=== PATIENT | male | born 1935 | race Caucasian/White ===

== ENCOUNTER 2021-05-10 13:35 | Inpatient (IN) | payer BC, OTHER ==
[~2021-05-10] VITALS: Ht 165.1 cm; Wt 67.1 kg
--- NOTE | 2021-05-10 14:32 | NUR ---
DR ZUNIGA AT BEDSIDE
--- NOTE | 2021-05-10 14:38 | NUR ---
GEETA ZAMBRANO AT BEDSIDE FOR EKG
--- NOTE | 2021-05-10 14:50 | NUR ---
NEW GRAD RN AT BEDSIDE
[2021-05-10] MEDS ORDERED: IV NS 0.9% 1,000 ML BAG IV ONE ×2 (15:00→16:00)
[2021-05-10] MEDS ORDERED: PIPERACILLIN /TAZOBACTAM 3.375 G in IV D5W 50 ML IV ONE (15:00)
--- NOTE | 2021-05-10 15:07 | NUR ---
COVID 19 ANTIGEN SWAB DONE AND SENT TO LAB
--- NOTE | 2021-05-10 15:07 | NUR ---
RAPID INFLUENZA SWAB DONE AND SENT TO LAB
--- NOTE | 2021-05-10 15:10 | NUR ---
URINE SAMPLE COLLECTED AND SENT TO LAB
--- NOTE | 2021-05-10 15:18 | NUR ---
INFLUENZA, COVID ANTIGEN AND PCR SWABS DONE AND SENT TO THE LAB
[2021-05-10] MEDS ORDERED: PIPERACILLIN /TAZOBACTAM 3.375 G VIAL IV ONE (15:20)
--- NOTE | 2021-05-10 15:32 | NUR ---
COVID PCR SWAB DONE AND SENT TO LAB
[2021-05-10 15:44] LABS: BASOPHILS % (AUTO) 0.1 % (0.0-2.0); EOSINOPHILS % (AUTO) 1.2 % (0.0-6.0); HEMATOCRIT 35 % (39-51); HEMOGLOBIN 11.8 g/dL (13.5-17.5); LYMPHOCYTES # (AUTO) 0.5 K/uL (0.8-4.8); LYMPHOCYTES % (AUTO) 3.1 % (20.0-44.0); MEAN CORPUSCULAR HGB CONC 34 g/dl (31.0-36.0); MEAN CORPUSCULAR VOLUME 102 fL (80-96); MONOCYTES # (AUTO) 0.9 K/uL (0.1-1.30); MONOCYTES % (AUTO) 5.4 % (2.0-12.0); NEUTROPHILS # (AUTO) 14.4 K/uL (1.8-8.9); NEUTROPHILS % (AUTO) 90.2 % (43.0-81.0); PLATELET COUNT (AUTO) 125 K/uL (150-450); RED BLOOD CELL COUNT(AUTO) 3.43 MIL/uL (4.5-6.0)
[2021-05-10 16:15] LABS: ABG PCO2 34.7 mmHg (35.0-45.0); ABG PH 7.479 (7.350-7.450); ABG PO2 65.1 mmHg (75.0-100.0); COHb 0.3 % (0.5-1.5); MetHb 0.4 % (0.0-1.5); O2Hb 91.5 % (94.0-97.0); SITE, ABG Right Radial; VENT MODE, BG 4L NC
[2021-05-10 16:16] LABS: ALANINE AMINOTRANSFERASE 79 U/L (12-78); ALBUMIN 1.6 g/dL (3.4-5.0); ALKALINE PHOSPHATASE 200 U/L (46-116); ASPARTATE AMINOTRANSFERASE 103 U/L (15-37); BILIRUBIN,DIRECT 1.6 mg/dL (0.0-0.2); BILIRUBIN,TOTAL 4.8 mg/dL (0.2-1.0); CALCIUM, SERUM 7.6 mg/dL (8.5-10.1); CARBON DIOXIDE 31 mmol/L (21-32); CHLORIDE 103 mmol/L (98-107); CREATININE 2.2 mg/dL (0.6-1.3); GLUCOSE 123 mg/dL (74-106); SODIUM SERUM 144 mmol/L (136-145)
[2021-05-10 16:17] LABS: BILIRUBIN,URINE MODERATE (NEGATIVE); COLOR,URINE AMBER (YELLOW); LEUKOCYTE ESTERASE ,URINE MODERATE (NEGATIVE); NITRITE, URINE POSITIVE (NEGATIVE); PROTEIN,URINE 30 mg/dl (NEGATIVE); UGLUCOSE NEGATIVE (NEGATIVE)
[2021-05-10 16:20] LABS: UREA NITROGEN, BLOOD 94 mg/dL (7-18)
[2021-05-10 16:40] LABS: BACTERIA,URINE 3+ /HPF (None Seen); COARSE GRANULAR CASTS,URINE Few /LPF (None Seen); RBC,URINE 51-80 /HPF (0-2); SQUAMOUS EPITHELIAL CELL,UR Few /HPF (None Seen); WBC,URINE 51-80 /HPF (0-3)
--- NOTE | 2021-05-10 16:58 | NUR ---
GAVE REPORT TO SAROJ (HISTOLOGIC TECHNICIAN OF [facility]). CALL BACK #: [phone]
[2021-05-10] MEDS ORDERED: Z GUARD REMEDY 4 OZ OINT TP PRN (18:00)
[2021-05-10] MEDS ORDERED: ONDANSETRON HCL/PF 4 MG/2 ML VIAL IVP PRN (18:00)
[2021-05-10] MEDS ORDERED: TEMAZEPAM 15 MG CAPSULE PO PRN (18:00)
[2021-05-10] MEDS ORDERED: MORPHINE SULFATE INJ 2 MG/ML DISP.SYRIN IV PRN (18:00)
--- NOTE | 2021-05-10 18:24 | NUR ---
PATIENT GIVEN AUTHORIZATION BY [facility] TO STAY HERE
[2021-05-10] MEDS ORDERED: VANCOMYCIN 1 GM in IV D5W 250ml IV ONE (20:00)
--- NOTE | 2021-05-10 20:55 | NUR ---
REPOPRT GIVEN TO WILLEM TREADWELL
[2021-05-10] MEDS ORDERED: PIPERACILLIN /TAZOBACTAM 2.25 G in IV D5W 50 ML IV SCH (21:00)
[2021-05-10 21:23] VITALS: BP 102/51
--- NOTE | 2021-05-10 21:23 | NUR ---
PATIENT TRANSFERRED, NO ACUTE DISTRESS NOTED.
--- NOTE | 2021-05-10 21:24 | NUR ---
RN ADMITTING NOTE PATIENT ADMITTED FROM ER, CAME FROM [facility]. PATIENT IS HERE FOR SEPSIS UNDER MED SURG. PATIENT BROUGHT WITH 5LPM, SATTING 93%. PATIENT HAS MILD SOB. PATIENT IS A/O X 1-2 AT THIS TIME, HX OF DEMENTIA. PATIENT HAS A MOTLEY CATH IN PLACE DOMENICO/TEA COLORED URINE. PATIENT'S SKIN ISSUES IDENTIFIED AND DOCUMENTED. PATIENT HAS A RAC 18 G PATENT AND INTACT, PATIENT CAME WITH LAC INFILTRATED WILL TAKE IT OUT. PATIENT DOESN'T REMEMBER HIS IMMUNIZATION RECORDS, WILL FOLLOW UP WITH MIRTA CRISOSTOMO [phone]. PATIENT TO BE PUT ON SPINAL PRECAUTIONS PER ER DT IMAGING SHOWING FX ON T7, NOT CONFIRMED IF OLD OR NEW. PATIENT DOES NOT HAVE ANY BELONGINGS WITH HIM. ORIENTED PATIENT TO THE ROOM, RNSARAH. SAFETY MEASURES IN PLACE: BED LOCKED AND IN LOWEST POSITION, CALL LIGHT WITHIN REACH, SIDE RAILS UP. WILL MONITOR PATIENT CLOSELY. Addendum: 05/11/21 at 0717 by ERIC MAHONEY RN PATIENT HAS A PREVIOUS DNR/DNI ORDER FROM [facility], PATIENT TO BE FC AT THIS TIME UNTIL ORDER /POLST IS RECEIVED.
[2021-05-10] MEDS ORDERED: VANCOMYCIN 1 GM VIAL ONE (22:34)
[2021-05-10] MEDS: HEPARIN SODIUM, PORCINE 5000 UNITS/1 ML VIAL SQ SCH (23:01)
[2021-05-10] MEDS: IV NS 0.9% 1,000 ML IV PRN (23:07)
--- NOTE | 2021-05-10 23:30 | NUR ---
MIRTA TALAVERA CALLED BUT NO ANSWER. LEFT A VOICEMAIL TO HAVE HER CALL THE UNIT REGARDING THE PATIENT TO DISCUSS POLST AND OTHER INFORMATION.
[2021-05-10] MEDS ORDERED: CEFEPIME 1 GM VIAL ONE (23:40)
[2021-05-11] MEDS: CEFEPIME 2 GM in IV D5W 100 ML IV SCH ×2 (00:29→21:25)
--- NOTE | 2021-05-11 01:06 | NUR ---
RN NOTE DROPPED METOPROLOL TABLET ON THE FLOOR, PULLED ANOTHER TABLET FROM [employer].
[2021-05-11 04:00] VITALS: BP 123/44
--- NOTE | 2021-05-11 07:12 | NUR ---
RN CLOSING NOTE PATIENT HAS EYES CLOSED, EASILY AWAKENED. PATIENT IS A/O X 1-2 AT THIS TIME. PATIENT ON 5LPM NASAL CANULA 93-94% SATURATION. PATIENT HAS MOTLEY IN PLACE, DRAINING VIA GRAVITY. PATIENT HAS A RAC 18G WITH NS@75 ML/HR, INFUSING WELL. NOT IN ANY APPARENT DISTRESS AT THIS TIME, MILD SOB AND COUGH PRESENT. SAFETY MEASURES IN PLACE: BED LOCKED AND IN LOWEST POSITION, CALL LIGHT WITHIN REACH, SIDE RAILS UP. WILL ENDORSE TO DAY SHIFT NURSE FOR HU.
--- NOTE | 2021-05-11 07:45 | NUR ---
RN OPENING NOTE RECEIVED PATIENT SLEEPING IN BED. BREATHING EVEN AND UNLABORED. NO SOB OR ANY ACUTE DISTRESS NOTED. ON O2 5LPM VIA NC, TOLERATING WELL. IV ACCESS ON RIGHT AC #18 INTACT, PATENT AND INFUSING NS @ 75ML/HR, TOLERATING WELL. ALL APPLICABLE ISOLATION PRECAUTIONS IN PLACED. ALL SAFETY MEASURES IN PLACE: BED LOCKED AND AT LOWEST POSITION, RAILS UP X2, CALL TORIBIO WITHIN REACH. WILL CONTINUE TO MONITOR PATIENT ACCORDINGLY.
[2021-05-11 08:01] LABS: BASOPHILS # (AUTO) 0.1 K/uL (0.0-0.2); BASOPHILS % (AUTO) 0.5 % (0.0-2.0); EOSINOPHILS % (AUTO) 0.8 % (0.0-6.0); HEMATOCRIT 36 % (39-51); HEMOGLOBIN 12.2 g/dL (13.5-17.5); LYMPHOCYTES # (AUTO) 0.6 K/uL (0.8-4.8); LYMPHOCYTES % (AUTO) 3.4 % (20.0-44.0); MEAN CORPUSCULAR HGB CONC 34 g/dl (31.0-36.0); MEAN CORPUSCULAR VOLUME 101 fL (80-96); MONOCYTES # (AUTO) 1.1 K/uL (0.1-1.30); MONOCYTES % (AUTO) 6.6 % (2.0-12.0); NEUTROPHILS # (AUTO) 14.7 K/uL (1.8-8.9); NEUTROPHILS % (AUTO) 88.7 % (43.0-81.0); PLATELET COUNT (AUTO) 116 K/uL (150-450); RED BLOOD CELL COUNT(AUTO) 3.55 MIL/uL (4.5-6.0); WHITE BLOOD COUNT (AUTO) 16.6 K/uL (4.3-11.0)
[2021-05-11] MEDS: LACTULOSE 10 G/15 ML UDC (PYXIS) PO SCH ×2 (08:20→16:31)
[2021-05-11] MEDS: PANTOPRAZOLE 40 MG TABLET.DR PO SCH (08:20)
[2021-05-11] MEDS: HEPARIN SODIUM, PORCINE 5000 UNITS/1 ML VIAL SQ SCH ×2 (08:22→21:33)
[2021-05-11] MEDS ORDERED: METO25TA4 PO (09:20)
[2021-05-11] MEDS ORDERED: NYST15PO4 TP (09:20)
[2021-05-11] MEDS ORDERED: THIA100T88 PO (09:20)
[2021-05-11] MEDS ORDERED: NA P133E RC (09:20)
[2021-05-11] MEDS ORDERED: LISI40TA13 PO (09:20)
[2021-05-11] MEDS ORDERED: ACET-868 PO ×2 (09:20)
[2021-05-11] MEDS ORDERED: ASCO-352 PO (09:20)
[2021-05-11] MEDS ORDERED: SENN-261 PO (09:20)
[2021-05-11] MEDS ORDERED: ZINC56.713 TP (09:20)
[2021-05-11] MEDS ORDERED: FURO-145 PO (09:20)
[2021-05-11] MEDS ORDERED: MAGN400O6 PO (09:20)
[2021-05-11] MEDS ORDERED: DONE10TA11 PO (09:20)
[2021-05-11] MEDS ORDERED: SPIR50TA5 PO (09:20)
[2021-05-11] MEDS ORDERED: TERA5CAP4 PO (09:20)
[2021-05-11] MEDS ORDERED: POLY17PO4 PO (09:20)
[2021-05-11] MEDS ORDERED: ZINC1CAP3 PO (09:20)
[2021-05-11] MEDS ORDERED: BISA10SU11 RC (09:20)
[2021-05-11] MEDS ORDERED: MULT-447 PO (09:20)
[2021-05-11] MEDS ORDERED: HYDR-4076 PO (09:20)
[2021-05-11] MEDS ORDERED: HYDR12.55 PO (09:20)
[2021-05-11] MEDS ORDERED: GUAI5SYR PO (09:20)
[2021-05-11] MEDS ORDERED: NEOM1OIN15 TP (09:20)
[2021-05-11 11:49] LABS: CALCIUM, SERUM 7.2 mg/dL (8.5-10.1); CARBON DIOXIDE 27 mmol/L (21-32); CHLORIDE 108 mmol/L (98-107); CREATININE 2.2 mg/dL (0.6-1.3); GLUCOSE 97 mg/dL (74-106); MAGNESIUM 2.8 mg/dL (1.8-2.4); PHOSPHORUS 4.7 mg/dL (2.5-4.9); POTASSIUM 4.7 mmol/L (3.5-5.1); SODIUM SERUM 144 mmol/L (136-145)
[2021-05-11 11:50] LABS: UREA NITROGEN, BLOOD 85 mg/dL (7-18)
[2021-05-11] MEDS: IV NS 0.9% 1,000 ML IV PRN (18:09)
--- NOTE | 2021-05-11 19:20 | NUR ---
RN OPENING NOTES RECEIVED PATIENT IN BED, AWAKE, ALERT AND VERBALLY RESPONSIVE, NO SOB NOTED NOT IN DISTRESS, A/O X 1-2 PT ON NASAL CANULA @ 5LPM . PATIENT NOTED WITH JOSIAH MID LINE, PATENT INTACT AND FLUSHED WITH NORMAL SALINE. ALL SAFETY PRECAUTION IMPLEMENTED. BED IS AT LOWEST POSITION AND LOCKED. BED ALARM ARMED. CALL LIGHT IS WITHIN REACH. WILL CONTINUE TO MONITOR
--- NOTE | 2021-05-11 19:25 | NUR ---
RN CLOSING NOTES PATIENT REMAINS AT STABLE CONDITION THROUGHOUT SHIFT. ON O2 5LPM VIA NC, TOLERATING WELL. BREATHING EVEN AND UNLABORED. NO SOB OR ANY ACUTE DISTRESS NOTED. IV ACCESS ON JOSIAH MIDLINE PATENT AND INTACT INFUSING NS AT 75 ML/HR, TOLERATING WELL. ALL DUE MEDS GIVEN ORDERED. ALL NEEDS ATTENDED. KEPT PATIENT CLEAN, DRY AND COMFORTABLE. ALL APPLICABLE ISOLATION PRECAUTIONS MAINTAINED. ALL SAFETY MEASURES MAINTAINED. HOB ELEVATED BED LOCKED AND IN LOWEST POSITION WITH SIDERAILS UP CALL LIGHT WITHIN REACH. WILL ENDORSE TO ONCOMING NURSE FOR HU.
[2021-05-11 20:00] VITALS: BP 105/45
[2021-05-11] MEDS: VANCOMYCIN 0.75 GM in IV D5W 250 ML IV SCH (23:28)
[2021-05-12 04:00] VITALS: BP 122/45
--- NOTE | 2021-05-12 08:24 | NUR ---
RN CLOSING NOTES PATIENT REMAIN STABLE THROUGH OUT THE SHIFT, NO SOB NOTED NOT IN DISTRESS, A/O X 1-2 PT ON NASAL CANULA @ 5LPM . PATIENT NOTED WITH JOSIAH MID LINE, PATENT INTACT AND FLUSHED WITH NORMAL SALINE. ALL DUE MEDS GIVEN ORDERED. ALL SAFETY PRECAUTION IMPLEMENTED. BED IS AT LOWEST POSITION AND LOCKED. BED ALARM ARMED. CALL LIGHT IS WITHIN REACH. WILL CONTINUE TO MONITOR
[2021-05-12] MEDS: FOLIC ACID 1 MG TABLET PO SCH (08:31)
[2021-05-12] MEDS: LACTULOSE 10 G/15 ML UDC (PYXIS) PO SCH ×2 (08:31→17:05)
[2021-05-12] MEDS: PANTOPRAZOLE 40 MG TABLET.DR PO SCH (08:31)
[2021-05-12] MEDS: HEPARIN SODIUM, PORCINE 5000 UNITS/1 ML VIAL SQ SCH ×2 (08:33→21:09)
[2021-05-12 09:23] LABS: CARBON DIOXIDE 27 mmol/L (21-32); CHLORIDE 108 mmol/L (98-107); CREATININE 2.6 mg/dL (0.6-1.3); GLUCOSE 84 mg/dL (74-106); POTASSIUM 4.6 mmol/L (3.5-5.1); SODIUM SERUM 145 mmol/L (136-145)
[2021-05-12 09:35] LABS: UREA NITROGEN, BLOOD 91 mg/dL (7-18)
[2021-05-12 09:53] LABS: FERRITIN 738 ng/mL (8-388); THYROID STIMULATING HORMONE 1.725 uIU/mL (0.358-3.74)
[2021-05-12 11:34] LABS: PROSTATE SPECIFIC ANTIGEN SCR 11.49 ng/mL (0.00-4.00)
[2021-05-12 11:49] LABS: IRON, SERUM 53 ug/dl (50-175); TOTAL IRON BINDING CAPACITY 71 ug/dl (250-450)
[2021-05-12 12:00] VITALS: BP 92/39
--- NOTE | 2021-05-12 14:00 | NUR ---
RECEIVED PATIENT RESTING IN BED , SOB NOTED BUT NOT IN DISTRESS - REPOSITIONED FOR COMFORT AND TO HELP WITH BREATHING TO HIGH FOWLERS POSITION - EFFECTIVE , A/O X 1 PT ON NASAL CANNULA @ 5LPM . OXYGEN MAINTAINED AT 93%, JOSIAH MID LINE INTACT , NO S/S OF ANY IRRITATION NOR INFECTION NOTED, PATENT AND FLUSHED WITH NORMAL SALINE. ALL DUE MEDS GIVEN ORDEREDM PO WITH WATER NO ASPIRATION NOTED. ALL SAFETY PRECAUTION IMPLEMENTED. BED IS AT LOWEST POSITION AND WHEELS LOCKED. BED ALARM ARMED AND ACTIVE, CALL LIGHT WITHIN REACH. WILL CONTINUE TO MONITOR, MD PLACED NEW ORDERS FOR COMFORT MEASURES PT IS A DNR DNI AT THIS TIME.
[2021-05-12] MEDS ORDERED: MAGNESIUM HYDROXIDE 30 ML UDC PO PRN (16:30)
[2021-05-12] MEDS ORDERED: BISACODYL SUPP (10 MG) 10 MG/SUPP.RECT SUPP.RECT RC PRN (16:30)
[2021-05-12] MEDS: MULTIVITAMIN LIQ 5 ML UDC PO SCH (16:30)
[2021-05-12] MEDS ORDERED: hydrALAZINE HCL 25 MG TABLET PO PRN (16:30)
[2021-05-12] MEDS ORDERED: GUAIFENESIN/D-METHORPHAN HB 5 ML UDC PO PRN (16:30)
[2021-05-12] MEDS ORDERED: NA PHOS,M-B/NA PHOS,DI-BA 1 EA ENEMA RC PRN (16:30)
[2021-05-12] MEDS: ASCORBIC ACID 500 MG TABLET PO SCH (17:05)
[2021-05-12] MEDS: THIAMINE HCL 100 MG TABLET PO SCH ×2 (17:06→17:07)
[2021-05-12] MEDS: FUROSEMIDE 20 MG TABLET PO SCH (17:06)
--- NOTE | 2021-05-12 17:40 | NUR ---
PHARMACY NOTIFIED MULTI VITAMIN LIQUID IS NOT AVAILABLE AT THIS TIME, THIS MEDICATION IS NOT PROVIDED HERE, TO NOTIFY FAMILY TO BRING IN A FORM OF LIQUID VITAMIN AT THIS TIME. PT ASLEEP EASY TO AROUSE, TOOK ALL OTHER PO MEDS WELL NO ASPIRATION NOTED WITH THICKENED WATER FOR SAFETY, BED LOW TO FLOOR, WHEELS LOCKED CALL LIGHT IN REACH, IV SITE IS FLUSHING WELL PATENT , INTACT, BED BATH PROVIDED, REPOSITIONED, ORAL CARE GIVEN, F/C CARE GIVEN INTACT, HOB ELEVATED TO HELP WITH BREATHING NO SOB NOTED AT THIS TIME AND NO LABORED BREATHING MAINTAINING A 93% OXYGEN VIA NC , CALL LIGHT IN REACH MONITORING CLOSELY FOR ANY SIGNIFICANT CHANGES.
--- NOTE | 2021-05-12 19:40 | NUR ---
RN OPENING NOTES PATIENT RECEIVED IN BED ALERT, ORIENTED X1, RESPONSIVE TO PAINFUL STIMULI. ON O2 5LPM VIA NC AND TOLERATING WELL. BREATHING EVEN AND UNLABORED. NO SOB NOTED. IV ACCESS ON JOSIAH MIDLINE PATENT AND INTACT. NO S/S OF INFILTRATIONS. NO FACIAL GRIMACING NOTED. NO ACUTE DISTRESS. ALL SAFETY MEASURES IN PLACE. BED IN LOWEST POSITION. SIDERAILS UP X3, PLACE CALL LIGHT WITHIN REACH. WILL CONTINUE TO MONITOR
[2021-05-12 20:00] VITALS: BP 122/43
[2021-05-12] MEDS: CEFEPIME 2 GM in IV D5W 100 ML IV SCH (20:47)
[2021-05-12] MEDS: DONEPEZIL 5 MG TABLET PO SCH (21:58)
[2021-05-12] MEDS: TERAZOSIN HCL 5 MG CAPSULE PO SCH (22:09)
[2021-05-13] MEDS: VANCOMYCIN 0.75 GM in IV D5W 250 ML IV SCH (01:05)
[2021-05-13 04:00] VITALS: BP 100/36
--- NOTE | 2021-05-13 06:40 | NUR ---
RN CLOSING NOTES PATIENT RESTING IN BED ALERT, ORIENTED X1, RESPONSIVE TO PAINFUL STIMULI. ON O2 5LPM VIA NC, O2 SAT 94% AND TOLERATING WELL. BREATHING EVEN AND UNLABORED. NO SOB NOTED. IV ACCESS ON JOSIAH MIDLINE PATENT AND INTACT WITH RUNNING NS AT 125ML/HR . NO S/S OF INFILTRATIONS. NO FACIAL GRIMACING NOTED. NO ACUTE DISTRESS. MOTLEY CATHETER INTACT AND PATENT. ALL DUE MEDS GIVEN ORDERED. ALL SAFETY MEASURES IN PLACE. BED IN LOWEST POSITION. SIDERAILS UP X3, PLACE CALL LIGHT WITHIN REACH. WILL ENDORSE TO MORNING SHIFT NURSE.
[2021-05-13] MEDS: IV NS 0.9% 1,000 ML IV PRN ×2 (07:42→17:13)
[2021-05-13] MEDS: LISINOPRIL (20MG) 20 MG TABLET PO SCH (09:00)
[2021-05-13] MEDS: FUROSEMIDE 20 MG TABLET PO SCH ×2 (09:00→17:00)
[2021-05-13] MEDS: METOPROLOL SUCCINATE 25 MG TAB.SR.24H PO SCH (09:00)
[2021-05-13 09:05] LABS: CALCIUM, SERUM 6.6 mg/dL (8.5-10.1); CARBON DIOXIDE 25 mmol/L (21-32); CHLORIDE 110 mmol/L (98-107); GLUCOSE 114 mg/dL (74-106); POTASSIUM 4.3 mmol/L (3.5-5.1); SODIUM SERUM 144 mmol/L (136-145)
[2021-05-13] MEDS: ZINC OXIDE 56.7 GM TUBE TP SCH (10:23)
[2021-05-13] MEDS: NYSTATIN TOP POWDER 15 GM BOTTLE TP SCH (10:23)
[2021-05-13] MEDS: BACI/NEOM/POLY B OINT PKT 1 UDPKT PACKET TP SCH (10:23)
[2021-05-13] MEDS: HEPARIN SODIUM, PORCINE 5000 UNITS/1 ML VIAL SQ SCH ×2 (10:24→21:00)
[2021-05-13] MEDS: LACTULOSE 10 G/15 ML UDC (PYXIS) PO SCH ×2 (10:25→17:11)
[2021-05-13] MEDS: SENNOSIDES 8.6 MG TABLET PO SCH (10:25)
[2021-05-13] MEDS: FOLIC ACID 1 MG TABLET PO SCH (10:25)
[2021-05-13] MEDS: ASCORBIC ACID 500 MG TABLET PO SCH (10:25)
[2021-05-13] MEDS: SPIRONOLACTONE 25 MG TABLET PO SCH (10:25)
[2021-05-13 10:35] LABS: UREA NITROGEN, BLOOD 95 mg/dL (7-18)
[2021-05-13] MEDS: MULTIVITAMIN LIQ 5 ML UDC PO SCH (11:07)
[2021-05-13 12:00] VITALS: BP 75/31
[2021-05-13 15:51] LABS: BASOPHILS # (AUTO) 0.1 K/uL (0.0-0.2); BASOPHILS % (AUTO) 0.8 % (0.0-2.0); EOSINOPHILS % (AUTO) 1.1 % (0.0-6.0); HEMATOCRIT 31 % (39-51); HEMOGLOBIN 10.4 g/dL (13.5-17.5); LYMPHOCYTES # (AUTO) 0.5 K/uL (0.8-4.8); LYMPHOCYTES % (AUTO) 4.6 % (20.0-44.0); MEAN CORPUSCULAR HGB CONC 34 g/dl (31.0-36.0); MEAN CORPUSCULAR VOLUME 102 fL (80-96); MONOCYTES # (AUTO) 0.6 K/uL (0.1-1.30); MONOCYTES % (AUTO) 5.5 % (2.0-12.0); NEUTROPHILS # (AUTO) 9.2 K/uL (1.8-8.9); PLATELET COUNT (AUTO) 65 K/uL (150-450); RED BLOOD CELL COUNT(AUTO) 3.03 MIL/uL (4.5-6.0); WHITE BLOOD COUNT (AUTO) 10.4 K/uL (4.3-11.0)
[2021-05-13 16:21] LABS: D-DIMER 4.59 mg/L(FEU (0.17-0.50)
--- NOTE | 2021-05-13 19:30 | NUR ---
RN CLOSING NOTES PATIENT RESTING IN BED ALERT, ORIENTED X1, RESPONSIVE TO PAINFUL STIMULI. ON O2 5LPM VIA NC, O2 SAT 94% AND TOLERATING WELL. BREATHING EVEN AND UNLABORED. NO SOB NOTED. IV ACCESS ON JOSIAH MIDLINE PATENT AND INTACT WITH RUNNING NS AT 125ML/HR . NO S/S OF INFILTRATIONS. NO FACIAL GRIMACING NOTED. NO ACUTE DISTRESS. MOTLEY CATHETER INTACT AND PATENT. ALL DUE MEDS GIVEN ORDERED. ALL SAFETY MEASURES IN PLACE. BED IN LOWEST POSITION. SIDERAILS UP X3, PLACE CALL LIGHT WITHIN REACH. WILL ENDORSE TO DIRECTOR FOOD AND BEVERAGE NURSE.
--- NOTE | 2021-05-13 19:30 | NUR ---
MS RN OPENING NOTE RECEIVED PATIENT IN BED, ISOLATION IN PLACE. A/OX2. NO S/S OF APPARENT DISTRESS ON 5LPM OF O2 VIA NC. PATIENT DENIES PAIN AT THIS TIME. IV NS RUNNING AT 125 THIS TIME -- (CHANGED TO 75 ORDER CHANGED). MOTLEY CATHETER DRAINING TEA COLOR URINE. PATIENT NOTED TO HAVE BIG BRUISES ON BILATERAL ARMS. SAFETY IN PLACE. HOB ELEVATED TO 45 DEGREES. WILL CONTINUE WITH PLAN OF CARE FOR PATIENT.
[2021-05-13 20:00] VITALS: BP 93/35
--- NOTE | 2021-05-13 20:00 | NUR ---
MS RN NOTE HELD SCHEDULED 0 HYTRIN. BP WAS INITIALLY 83/35 WHEN CHECKED BY DOPE DRY HOUSE OPERATOR. RECHECKED MYSELF, BP WAS 93/39. WILL CONTINUE TO MONITOR PATIENT.
[2021-05-13] MEDS ORDERED: MEROPENEM 500 MG VIAL IV ONE (21:47)
[2021-05-13] MEDS: TERAZOSIN HCL 5 MG CAPSULE PO SCH (22:00)
[2021-05-13] MEDS: MEROPENEM 500 MG in IV NS 0.9% 50 ML IV SCH (22:19)
[2021-05-13] MEDS: DONEPEZIL 5 MG TABLET PO SCH (22:20)
--- NOTE | 2021-05-13 23:46 | NUR ---
MS RN NOTE HEPARIN HELD PER DOCTOR [facility] ORDER. PLT. OF 66.
[2021-05-14] MEDS: IV NS 0.9% 1,000 ML IV PRN (02:59)
[2021-05-14 04:00] VITALS: BP 89/32
--- NOTE | 2021-05-14 06:29 | NUR ---
MS RN NOTE RECHECKED BP: 88/57. PER ÁNGELA, CHARGE NURSE STILL OKAY WITH MAP OF 74. NO INTERVENTION NEEDED.
--- NOTE | 2021-05-14 06:40 | NUR ---
MS RN CLOSING NOTE PATIENT IN BED WITH EYES CLOSED. A/OX2. NO S/S OF APPARENT DISTRESS ON 5LPM O2 VIA NC. HOB ELEVATED. DENIES PAIN. NEEDS ATTENDED. MOTLEY DRAINING TEA COLORED URINE WITH UO OF 100ML. IV NS RUNNING AT 75ML/HR. SAFETY IN PLACE. ISOLATION PRECAUTION STRICTLY FOLLOWED. NO SIGNIFICANT CHANGE SINCE LAST ENDORSEMENT. WILL ENDORSE TO MORNING RN FOR CONTINUITY OF CARE.
--- NOTE | 2021-05-14 07:48 | NUR ---
RN OPEN NOTE RECEIVED PATIENT IN BED AWAKE A/OX2. NO S/S OF APPARENT DISTRESS OR SOB NOTED AT THIS TIME, ON 5LPM O2 VIA NC. MOTLEY BELOW THE PT DRAINING TEA COLORED URINE, IV JOSIAH MIDLINE RUNNING NS AT 75ML/HR. SAFETY MEASURES IMPLEMENTED, CALL LIGHT WITHIN REACH BED ALARM ON, BED ALSO LOCKED AND IN LOWEST POSITION, ISOLATION PRECAUTION STRICTLY FOLLOWED. WILL CONTINUE TO MONITOR
[2021-05-14 07:57] LABS: BASOPHILS % (AUTO) 0.2 % (0.0-2.0); EOSINOPHILS % (AUTO) 1.1 % (0.0-6.0); HEMATOCRIT 32 % (39-51); HEMOGLOBIN 10.9 g/dL (13.5-17.5); LYMPHOCYTES # (AUTO) 0.3 K/uL (0.8-4.8); LYMPHOCYTES % (AUTO) 2.7 % (20.0-44.0); MEAN CORPUSCULAR HGB CONC 34 g/dl (31.0-36.0); MEAN CORPUSCULAR VOLUME 103 fL (80-96); MONOCYTES # (AUTO) 0.7 K/uL (0.1-1.30); MONOCYTES % (AUTO) 6.2 % (2.0-12.0); NEUTROPHILS # (AUTO) 10.8 K/uL (1.8-8.9); NEUTROPHILS % (AUTO) 89.8 % (43.0-81.0); PLATELET COUNT (AUTO) 74 K/uL (150-450); RED BLOOD CELL COUNT(AUTO) 3.13 MIL/uL (4.5-6.0)
[2021-05-14 08:00] VITALS: BP 90/35
[2021-05-14 08:11] LABS: CARBON DIOXIDE 23 mmol/L (21-32); CHLORIDE 113 mmol/L (98-107); CREATININE 3.5 mg/dL (0.6-1.3); GLUCOSE 94 mg/dL (74-106); POTASSIUM 4.1 mmol/L (3.5-5.1); SODIUM SERUM 146 mmol/L (136-145)
[2021-05-14 08:13] LABS: UREA NITROGEN, BLOOD 95 mg/dL (7-18)
[2021-05-14] MEDS: LISINOPRIL (20MG) 20 MG TABLET PO SCH (09:00)
[2021-05-14] MEDS: FUROSEMIDE 20 MG TABLET PO SCH ×2 (09:00→17:08)
[2021-05-14] MEDS: HEPARIN SODIUM, PORCINE 5000 UNITS/1 ML VIAL SQ SCH (09:00)
[2021-05-14] MEDS: METOPROLOL SUCCINATE 25 MG TAB.SR.24H PO SCH (09:00)
[2021-05-14 09:07] LABS: IMMUNOGLOBULIN A, SERUM 421 mg/dL (61-437); IMMUNOGLOBULIN G, SERUM 1254 mg/dL (603-1613); IMMUNOGLOBULIN M, SERUM 367 mg/dL (15-143)
[2021-05-14] MEDS: LACTULOSE 10 G/15 ML UDC (PYXIS) PO SCH ×2 (09:28→17:08)
[2021-05-14] MEDS: SPIRONOLACTONE 25 MG TABLET PO SCH (09:28)
[2021-05-14] MEDS: ASCORBIC ACID 500 MG TABLET PO SCH (09:28)
[2021-05-14] MEDS: SENNOSIDES 8.6 MG TABLET PO SCH (09:28)
[2021-05-14] MEDS: FOLIC ACID 1 MG TABLET PO SCH (09:28)
[2021-05-14] MEDS: THIAMINE HCL 100 MG TABLET PO SCH (09:28)
[2021-05-14] MEDS: MULTIVITAMIN LIQ 5 ML UDC PO SCH (09:30)
[2021-05-14] MEDS: MEROPENEM 500 MG in IV NS 0.9% 50 ML IV SCH ×2 (09:33→22:49)
[2021-05-14] MEDS: BACI/NEOM/POLY B OINT PKT 1 UDPKT PACKET TP SCH (09:33)
[2021-05-14] MEDS: ZINC OXIDE 56.7 GM TUBE TP SCH (09:45)
[2021-05-14] MEDS: NYSTATIN TOP POWDER 15 GM BOTTLE TP SCH (09:45)
--- NOTE | 2021-05-14 09:46 | NUR ---
RN NOTED BLOOD PRESSURE 90/35, LISINOPRIL, FUROSEMIDE AND METOPROLOL HOLD, PLATELET 74 HEPARIN HOLD. DOCTOR NOTIFIED
--- NOTE | 2021-05-14 10:29 | NUR ---
PER [facility] COVID POSITIVE DR. RICH MADE AWARE.
[2021-05-14 11:07] LABS: *SPE A/G RATIO 0.7 (0.7-1.7); *SPE ALPHA-1-GLOBULIN 0.2 g/dL (0.0-0.4); *SPE ALPHA-2-GLOBULIN 0.3 g/dL (0.4-1.0); *SPE BETA GLOBULIN 0.6 g/dL (0.7-1.3); *SPE M-SPIKE Not Observed g/dL (Not Observed)
--- NOTE | 2021-05-14 12:19 | NUR ---
RN NOTE CALLED DR ROBLES HE DID NOT ANSWER , I WILL CALL AGAIN BP 75/35 TEMPERATURE 36.4 CALLED [facility] [employer] WAITING FOR A BEG KYRA WILL CONTINUE TO MONITOR
--- NOTE | 2021-05-14 12:38 | NUR ---
RN NOTED BLOOD PRESSURE 80/40 MANUALLY
[2021-05-14 16:00] VITALS: BP 80/37
[2021-05-14] MEDS ORDERED: IV 1/2NS 1000 ML 1,000 ML IV ONE (16:30)
--- NOTE | 2021-05-14 19:21 | NUR ---
RN CLOSING NOTE PATIENT IN BED A/OX2. NO S/S OF APPARENT DISTRESS ON 5LPM O2 VIA NC. HOB ELEVATED. DENIES PAIN. NEEDS ATTENDED. MOTLEY BELOW THE PT DRAINING TEA COLORED URINE WITH IV 0.45 NS RUNNING AT 50 ML/HR. SAFETY MEASURES IN PLACE. BEG HUGGER IN THE ROOM FOR LOW TEMPERATURE, BP IS BEEN ALSO LOW 80S AND 40S DURING SHIFT, ISOLATION PRECAUTION STRICTLY FOLLOWED. NO SIGNIFICANT CHANGES SINCE LAST ENDORSEMENT. WILL ENDORSE TO UNIT TECHNICIANRESIDENT ATHLETIC TRAINER
--- NOTE | 2021-05-14 19:30 | NUR ---
RN OPENING NOTE RECEIVED PATIENT IN BED AWAKE A/OX2. NO S/S OF APPARENT DISTRESS OR SOB NOTED AT THIS TIME, ON 5LPM O2 VIA NC, O2 SAT 96%. NO SIGNIFICANT FINDINGS UPON INITIAL NURSING ASSESSMENTS. SAFETY MEASURES IMPLEMENTED, CALL LIGHT WITHIN REACH BED ALARM ON, BED ALSO LOCKED AND IN LOWEST POSITION, ISOLATION PRECAUTION STRICTLY FOLLOWED. WILL CONTINUE TO MONITOR
[2021-05-14] MEDS: TERAZOSIN HCL 5 MG CAPSULE PO SCH (22:00)
[2021-05-14] MEDS: DONEPEZIL 5 MG TABLET PO SCH (22:49)
[2021-05-15] VITALS: BP 89/59
[2021-05-15] MEDS ORDERED: IV NS 0.9% 500 ML IV ONE (06:30)
--- NOTE | 2021-05-15 07:08 | NUR ---
RN CLOSING NOTE PATIENT NOTED HYPOTENSIVE AT 0400, TOOK 3 SETS OF VITAL SIGNS 5 MINUTES APART, BP FOLLOWS: 58/32, 65/33, 63/43. DR. THORPE MADE AWARE, ORDERED 500ML NS BOLUS AND IV FLUIDS NS AT 50ML/HR. PATIENT'S BLOOD PRESSURE IS NOW 78/48, PATIENT IN NO DISTRESS. WILL ENDORSE CARE OF PATIENT TO AM NURSE FOR HU.
[2021-05-15] MEDS ORDERED: IV NS 0.9% 1,000 ML IV SCH (07:30)
--- NOTE | 2021-05-15 07:49 | NUR ---
MS RN OPENING NOTE Patient in bed, asleep. A/O x 1-2. On O2 at % LPM via NC, breathing evenly and unlabored. No SOB or s/s of distress noted. IV access on JOSIAH midline infusing NS bolus. Safety precautions in place: bed in low, locked position; siderails up x 2; call light within reach. Will continue to monitor.
[2021-05-15 08:00] VITALS: BP 83/27
[2021-05-15 08:24] LABS: CALCIUM, SERUM 7.7 mg/dL (8.5-10.1); CARBON DIOXIDE 20 mmol/L (21-32); CHLORIDE 113 mmol/L (98-107); CREATININE 4.1 mg/dL (0.6-1.3); GLUCOSE 69 mg/dL (74-106); POTASSIUM 4.6 mmol/L (3.5-5.1); SODIUM SERUM 148 mmol/L (136-145)
[2021-05-15 08:30] LABS: UREA NITROGEN, BLOOD 104 mg/dL (7-18)
--- NOTE | 2021-05-15 08:30 | NUR ---
RN NOTE Critical value received from Gavin, from lab; BUN is 104. MD notified.
[2021-05-15] MEDS ORDERED: MULTIVIT W/MINERALS 1 TAB TABLET PO SCH (09:00)
[2021-05-15] MEDS: ASCORBIC ACID 500 MG TABLET PO SCH (09:00)
[2021-05-15] MEDS: BACI/NEOM/POLY B OINT PKT 1 UDPKT PACKET TP SCH (09:00)
[2021-05-15] MEDS: ZINC OXIDE 56.7 GM TUBE TP SCH (09:00)
[2021-05-15] MEDS: THIAMINE HCL 100 MG TABLET PO SCH (09:00)
[2021-05-15] MEDS: LACTULOSE 10 G/15 ML UDC (PYXIS) PO SCH ×2 (09:00→17:00)
[2021-05-15] MEDS: LISINOPRIL (20MG) 20 MG TABLET PO SCH (09:00)
[2021-05-15] MEDS: METOPROLOL SUCCINATE 25 MG TAB.SR.24H PO SCH (09:00)
[2021-05-15] MEDS: FOLIC ACID 1 MG TABLET PO SCH (09:00)
[2021-05-15] MEDS: NYSTATIN TOP POWDER 15 GM BOTTLE TP SCH (09:00)
[2021-05-15] MEDS: SENNOSIDES 8.6 MG TABLET PO SCH (09:00)
[2021-05-15] MEDS: SPIRONOLACTONE 25 MG TABLET PO SCH (10:18)
[2021-05-15] MEDS: FUROSEMIDE 20 MG TABLET PO SCH ×2 (10:18→17:00)
[2021-05-15] MEDS: MEROPENEM 500 MG in IV NS 0.9% 50 ML IV SCH (10:27)
--- NOTE | 2021-05-15 12:00 | NUR ---
RN NOTE Patient's BP is still low at 81/35, MD aware.
--- NOTE | 2021-05-15 15:00 | NUR ---
RN NOTE Patient's O2 saturation is 87 at 5 LPM, O2 increased to 15 LPM via non-rebreather. SPO2 went up to 92. MD notified.
[2021-05-15 16:00] VITALS: BP 116/26
--- NOTE | 2021-05-15 18:30 | NUR ---
RN NOTE Patient discharged to [facility].
== END 2021-05-15 18:22 | disposition hospice, inpatient (51) | DRG 871 ==
LOC: ER 13:44 → TRANSITION 19:32 → TELE1 20:38 → MEDSG1 21:19
PROVIDERS: ADMIT Nurse Practitioner Acute Care; ATTEND Internal Medicine
PROC: 05H933Z Insertion of Infusion Device into Right Brachial Vein, Percutaneous Approach (ICD-10-PCS; principal; 2021-05-11)
DX: A41.9 Sepsis, unspecified organism (principal); E43 Unspecified severe protein-calorie malnutrition; J96.01 Acute respiratory failure with hypoxia; J15.6 Pneumonia due to other Gram-negative bacteria; J15.9 Unspecified bacterial pneumonia; N17.0 Acute kidney failure with tubular necrosis; U07.1 COVID-19; N39.0 Urinary tract infection, site not specified; M80.08XA Age-related osteoporosis with current pathological fracture, vertebra(e), initial encounter for fracture; I50.32 Chronic diastolic (congestive) heart failure; D68.59 Other primary thrombophilia; R64 Cachexia; N42.9 Disorder of prostate, unspecified; E27.9 Disorder of adrenal gland, unspecified; D69.6 Thrombocytopenia, unspecified; I11.0 Hypertensive heart disease with heart failure; D53.9 Nutritional anemia, unspecified; E11.9 Type 2 diabetes mellitus without complications; E66.01 Morbid (severe) obesity due to excess calories; E86.0 Dehydration; G30.9 Alzheimer's disease, unspecified; F02.80 Dementia in other diseases classified elsewhere, unspecified severity, without behavioral disturbance, psychotic disturbance, mood disturbance, and anxiety; I25.10 Atherosclerotic heart disease of native coronary artery without angina pectoris; I48.91 Unspecified atrial fibrillation; K42.9 Umbilical hernia without obstruction or gangrene; K80.20 Calculus of gallbladder without cholecystitis without obstruction; M89.8X9 Other specified disorders of bone, unspecified site; N40.1 Benign prostatic hyperplasia with lower urinary tract symptoms; Z66 Do not resuscitate; Z91.81 History of falling; Z87.891 Personal history of nicotine dependence; K70.31 Alcoholic cirrhosis of liver with ascites; B96.1 Klebsiella pneumoniae [K. pneumoniae] as the cause of diseases classified elsewhere; R29.6 Repeated falls; C67.9 Malignant neoplasm of bladder, unspecified
CPT/HCPCS: 36415; 36600; 71045-TC; 71250-TC; 76770-TC; 80048-TC; 80076-TC; 80202-TC; 81001; 82140-TC; 82378; 82533; 82728-TC; 82784; 82803-TC; 83540-TC; 83605-TC; 83735-TC; 84100-TC; 84153-TC; 84154-TC; 84155; 84165; 84260; 84443-TC; 84484-TC; 85025-TC; 85385-TC; 85396; 85610-TC; 85730-TC; 86140-TC; 86316; 86334; 86706; 86803; 87040-TC; 87081-TC; 87086-TC; 87186-TC; 87340; 87806; 92526; 92611-TC; 93307-TC; C9803; G0378; J0692; J1644; J2185; J2270; J2405; J2543; J3370; J3490; J7030; J7060; U0003

== ENCOUNTER 2021-05-15 18:45 | Inpatient (IN) | payer OTHER ==
[~2021-05-15 18:45] MED LIST: ACET-868 PO; ASCO-352 PO; BISA10SU11 RC; DONE10TA11 PO; FURO-145 PO; GUAI5SYR PO; HYDR-4076 PO; HYDR12.55 PO; LISI40TA13 PO; MAGN400O6 PO; METO25TA4 PO; MULT-447 PO; NA P133E RC; NEOM1OIN15 TP; NYST15PO4 TP; POLY17PO4 PO; SENN-261 PO; SPIR50TA5 PO; TERA5CAP4 PO; THIA100T88 PO; ZINC1CAP3 PO; ZINC56.713 TP
[2021-05-15] MEDS ORDERED: LORAZEPAM INJ 2 MG/ML VIAL IVP PRN (19:00)
[2021-05-15] MEDS ORDERED: MORPHINE SULFATE INJ 2 MG/ML DISP.SYRIN IV PRN (19:00)
--- NOTE | 2021-05-15 19:25 | NUR ---
NUT BLANKER OPERATOR NOTES: PATIENT ADMITTED TO HOSPICE CARE, COMFORT MEASURE ONLY. DIAGNOSIS OF ACUTE RESPIRATORY FAILURE. RECEIVED IN BED AWAKE, ALERT, ORIENTED X1 WITH UNCLEAR SPEECH. ON NON-BREATHER 15LPM AND PT TOLERATED WELL. IV ACCESS ON STEPH MIDLINE INTACT AND PATENT. NO S/S OF INFILTRATIONS. NO FACIAL GRIMACING NOTED AT THIS MOMENT. NO ACUTE DISTRESS. MOTLEY CATHETER INTACT AND PATENT WITH DOMENICO COLOR URINE. NO HEMATURIA NOTED. ALL SAFETY MEASURES IN PLACE. 3X BED SIDE RAILS UP. PLACE CALL LIGHT WITH IN REACH. WILL CONTINUE TO MONITOR FOR ANY CHANGES
[2021-05-15 20:00] VITALS: BP 86/49
--- NOTE | 2021-05-15 22:34 | NUR ---
RN NOTES: PT SHOWING EPISODE OF ANXIETY, RESTLESSNESS. CONSISTENTLY REMOVING NON-BREATHER MASK. O2 SATURATION STARTED TO DECREASE. ATIVAN 0.5 MG/0.25ML GIVEN PER PRN ORDER. AND PT TOLERATED WELL. WILL CONTINUE TO MONITOR
--- NOTE | 2021-05-16 06:40 | NUR ---
RN CLOSING NOTES: PATIENT IN BED BOTH EYE CLOSED, NON RESPONSIVE TO PAINFUL STIMULI. REMAIN LETHARGIC. ON NON-BREATHER 15LPM, O2 SAT FLUCTUATED BETWEEN 78-82%. PT IS ON HOSPICE CARE. IV ACCESS ON STEPH MIDLINE INTACT AND PATENT. NO S/S OF INFILTRATIONS. NO FACIAL GRIMACING NOTED AT THIS MOMENT. NO ACUTE DISTRESS. MOTLEY CATHETER INTACT AND PATENT WITH DARK COLOR URINE. ALL SAFETY MEASURES IN PLACE. 3X BED SIDE RAILS UP. PLACE CALL LIGHT WITH IN REACH. WILL ENDORSE TO MORNING SHIFT NURSE.
--- NOTE | 2021-05-16 07:20 | NUR ---
RN OPENING NOTES RECEIVED PATIENT IN BED, EYES CLOSED, NON RESPONSIVE TO PAINFUL STIMULI. ON O2 @ 15LPM VIA NON-REBREATHER MASK. IV ACCSESS ON ON LEFT UPPER ARM MIDLINE INTACT AND PATENT, SL. WITH F/C INTACT AND PATENT NOTED WITH TEA COLORED SCANT URINE. PATIENT UNDER HOSPICE CARE. ON COMFORT MEASURES ONLY. CONDITION IS GUARDED. WILL CONTINUE TO MONITOR.
--- NOTE | 2021-05-16 08:15 | NUR ---
RN NOTES PATIENT IN BED, NON-RESPONSIVE TO PAINFUL STIMULI. PATIENT NOTED WITH SVEN-SCHWARZ BREATHING, SATURATING @765 ON 15 LPM O2 VIA NON-REBREATHER MASK. CONDITION GUARDED. KEPT COMFORTABLE. WILL CONTINUE TO MONITOR.
--- NOTE | 2021-05-16 09:10 | NUR ---
RN NOTES AT AROUND 0835 PATIENT NOTED IN BED, PALE IN APPEARANCE. ASSESSED PATIENT. VITAL SIGNS UNAPPRECIATED. NO SIGNS OF LIFE. PATIENT . MADE AWARE. CALLED DAUGHTER SADAF BUT NO ANSWER, LEFT MESSAGE. CALLED [facility], MADE AWARE REGARDING PATIENTS PASSING. POST MORTEM CARE PROVIDED. IV ACCESS REMOVED, F/C REMOVED PATIENT DOUBLED BAGGED R/T (+) COVID 19.
== END 2021-05-16 10:01 | DRG 871 ==
LOC: HOSPICE1 18:45
PROVIDERS: ADMIT Internal Medicine; ATTEND Internal Medicine
DX: A41.9 Sepsis, unspecified organism (principal); J96.01 Acute respiratory failure with hypoxia; J15.9 Unspecified bacterial pneumonia; J15.6 Pneumonia due to other Gram-negative bacteria; N17.0 Acute kidney failure with tubular necrosis; E43 Unspecified severe protein-calorie malnutrition; N39.0 Urinary tract infection, site not specified; I50.32 Chronic diastolic (congestive) heart failure; D68.59 Other primary thrombophilia; R18.8 Other ascites; M80.88XA Other osteoporosis with current pathological fracture, vertebra(e), initial encounter for fracture; E72.20 Disorder of urea cycle metabolism, unspecified; R64 Cachexia; J91.8 Pleural effusion in other conditions classified elsewhere; F03.90 Unspecified dementia, unspecified severity, without behavioral disturbance, psychotic disturbance, mood disturbance, and anxiety; I10 Essential (primary) hypertension; E11.9 Type 2 diabetes mellitus without complications; B96.89 Other specified bacterial agents as the cause of diseases classified elsewhere; I11.0 Hypertensive heart disease with heart failure; N40.0 Benign prostatic hyperplasia without lower urinary tract symptoms; I25.10 Atherosclerotic heart disease of native coronary artery without angina pectoris; E27.9 Disorder of adrenal gland, unspecified; D69.6 Thrombocytopenia, unspecified; D64.9 Anemia, unspecified; F10.21 Alcohol dependence, in remission; Z87.891 Personal history of nicotine dependence; K42.9 Umbilical hernia without obstruction or gangrene; M89.8X9 Other specified disorders of bone, unspecified site; R74.01 Elevation of levels of liver transaminase levels; Z86.16 Personal history of COVID-19; Z74.09 Other reduced mobility; Y95 Nosocomial condition; Z66 Do not resuscitate; Z51.5 Encounter for palliative care
CPT/HCPCS: G0378; J2060